=== PATIENT | female | born 1950 | race Caucasian/White ===

== ENCOUNTER → 2016-08-26 | Outpatient (CLI) | payer BC ==
--- NOTE | 2016-08-26 15:06 | RADRPT ---
PROCEDURE: XR pelvis/right hip. CLINICAL INDICATION: Hip pain TECHNIQUE: AP pelvis/AP and lateral right hip views performed COMPARISON: No prior studies are available for comparison. FINDINGS: There is mild to moderate bilateral hip osteoarthrosis. This is associated with joint space narrowin g, subchondral sclerosis and osteophytosis. There is diffuse osteopenia. No fractures or osseous l esions are identified. There is moderate to severe lower lumbar degenerative disk disease. The soft tissues are unremarkable. IMPRESSION: Diffuse osteopenia Mild to moderate bilateral hip osteoarthrosis. Lower lumbar degenerative disk disease RPTAT: [facility] .Yousuf Rios MD, MD Date Time Electronically viewed and signed by .Yousuf Rios MD, on 08/26/2016 15:05 .B/
== END | disposition home or self-care (01) ==
LOC: HKI 14:33
PROVIDERS: ATTEND Orthopaedic Surgery
DX: M51.36 Other intervertebral disc degeneration, lumbar region (principal); M54.16 Radiculopathy, lumbar region; M54.5 Low back pain; E66.9 Obesity, unspecified; I10 Essential (primary) hypertension; E11.9 Type 2 diabetes mellitus without complications; Z79.84 Long term (current) use of oral hypoglycemic drugs; Z79.82 Long term (current) use of aspirin
CPT/HCPCS: 73502; G0463